=== PATIENT | female | born 1950 | race Caucasian/White ===

== ENCOUNTER → 2018-10-07 | Outpatient (CLI) | payer MEDICARE, BC, OTHER ==
[~2018-10-07] MED LIST: CIPR500 PO; ESCI20 PO; ESTNORT PO; LEVSOD100 PO; METR500 PO; PROG100 PO; STOMUL PO
== END | disposition home or self-care (01) ==
LOC: PLD 12:32 → LAB SHORT 12:32
DX: N85.00 Endometrial hyperplasia, unspecified (principal); N95.0 Postmenopausal bleeding
CPT/HCPCS: 88305

== ENCOUNTER 2018-11-03 09:15 | Day surgery (SDC) | payer MEDICARE, BC, OTHER ==
[~2018-11-03] VITALS: Ht 157.5 cm; Wt 82.8 kg
[~2018-11-03 09:15] MED LIST changes: +OLMESARTAN-HCT1 EACH PO
--- NOTE | 2018-11-03 10:07 | NUR ---
History, Chart, Medications and Allergies reviewed before start of procedure. Lungs clear T/O to Auscultation.
--- NOTE | 2018-11-03 15:07 | NUR ---
PT TO UNIT PT ARRIVED TO UNIT AT 1335 FROM OR VIA OR BED. SLIDE TO HOSPITAL BED. LITTLE IN PLACE PATENT AND DRAINING. PT ORIENTED TO UNIT. STERI STRIPS IN PLACE ON 3 ABDOMINAL SURGICAL SITES.
--- NOTE | 2018-11-03 17:48 | NUR ---
SHIFT SUMMARY POD0 PT FROM OR POST [facility]. ALERT AND ORIENTED. 3 ABDOMINAL SITES, STERISTRIPS IN PLACE, DRY AND NO DISCHARGE. PAD IN PLACE, SCANT DISCHARGE. MEDICATED FOR PAIN X1 WITH NORCO. PT MILD NAUSEA AFTER NORCO MEDICATED X1 WITH REGLAN. REGULAR DIET FOR PATIENT. LR RUNNING AT 125ML/HR. PT HAD FIRST INSULIN DOSAGE AT DINNER FOR NEW DIABETES.
[2018-11-04 04:40] LABS: BASOPHILS ABSOLUTE AUTO 0.01 K/mm3 (0.00-0.23); BASOPHILS PERCENT AUTO 0 % (0-2); EOSINOPHILS PERCENT AUTO 0 % (0-6); Hematocrit 33.2 % (33.0-51.0); Hemoglobin 10.8 g/dL (11.5-16.0); IMMATURE GRAN ABSOLUTE AUTO 0.09 K/mm3 (0.00-0.10); IMMATURE GRAN PERCENT AUTO 1 % (0-1); LYMPHOCYTES ABSOLUTE AUTO 1.41 K/mm3 (0.84-5.20); LYMPHOCYTES PERCENT AUTO 11 % (21-46); MONOCYTES PERCENT AUTO 4 % (4-13); Mean Corpuscular HGB 27.9 pg (26.0-34.0); Mean Corpuscular HGB Conc 32.5 g/dL (31.5-36.5); Mean Corpuscular Volume 86 fL (80-100); NEUTROPHILS ABSOLUTE AUTO 11.32 K/mm3 (1.96-9.15); NEUTROPHILS PERCENT AUTO 85 % (41-73); Platelet Count 242 K/mm3 (150-400); RDW Coefficient Variation 13.2 % (11.7-14.2); RDW Standard Deviation 41.1 fL (35.1-46.3); Red Blood Cell Count 3.87 M/mm3 (3.80-5.20); White Blood Cell Count 13.33 K/mm3 (4.00-11.30)
--- NOTE | 2018-11-04 07:49 | NUR ---
SUMMARY: POD [address] MICHELLE GREGORY. VSS, AFEBRILE, TOLERATING REGULAR INTAKE. PT PASSING MIN GAS BUT AMBULATES HALLS X2 THIS SHIFT. PAIN WELL CONTROLLED WITH TORDAL AND TYLENOL. LITTLE DC'D THIS MORNING AND AWAIT PT VOID. ANTICIPATE DC HOME LATER THIS DAY.
[2018-11-04] MEDS ORDERED: ACET325 PO (12:46)
[2018-11-04] MEDS ORDERED: DOCU100 PO (12:47)
[2018-11-04] MEDS ORDERED: IBUP600 PO (12:47)
--- NOTE | 2018-11-04 13:29 | NUR ---
DISCHARGE NOTE PT DISCHARGED TO HOME WITH . LEFT UNIT VIA WHEELCHAIR AT 1330. IV REMOVED, VERBAL AND WRITTEN DISCHARGE INFORMATION GONE OVER WITH PATIENT.
== END 2018-11-04 13:30 | disposition home or self-care (01) ==
LOC: ORSCMMR 09:15 → ORD 10:30 → ORSCMMR 10:30 → SURS 13:41 → ORSCMMR 11-04 13:30
PROVIDERS: Obstetrics & Gynecology
PROC: 0UT2FZZ Resection of Bilateral Ovaries, Via Natural or Artificial Opening With Percutaneous Endoscopic Assistance (ICD-10-PCS; principal; 2018-11-03 10:30)
PROC: 0UT7FZZ Resection of Bilateral Fallopian Tubes, Via Natural or Artificial Opening With Percutaneous Endoscopic Assistance (ICD-10-PCS; principal; 2018-11-03 10:30)
PROC: 0UT9FZZ Resection of Uterus, Via Natural or Artificial Opening With Percutaneous Endoscopic Assistance (ICD-10-PCS; principal; 2018-11-03 10:30)
DX: C54.1 Malignant neoplasm of endometrium (principal); N95.0 Postmenopausal bleeding; D25.9 Leiomyoma of uterus, unspecified; I10 Essential (primary) hypertension; E03.9 Hypothyroidism, unspecified; F32.9 Major depressive disorder, single episode, unspecified; Z79.899 Other long term (current) drug therapy
CPT/HCPCS: 36415; 82947; 85025; 88108; 88307; A9270-GY; C1729; J0690; J1885; J2250; J2704; J2765; J3010; J7030; J7120

== ENCOUNTER 2019-06-14 04:03 | Emergency (ER) | payer MEDICARE, BC, OTHER ==
[~2019-06-14] VITALS: Ht 157.5 cm; Wt 83.9 kg
[~2019-06-14 04:03] MED LIST changes: +ACET325 PO; +DOCU100 PO; +IBUP600 PO
[2019-06-14 04:41] LABS: BASOPHILS ABSOLUTE AUTO 0.05 K/mm3 (0.00-0.23); BASOPHILS PERCENT AUTO 0 % (0-2); EOSINOPHILS ABSOLUTE AUTO 0.21 K/mm3 (0.00-0.68); EOSINOPHILS PERCENT AUTO 1 % (0-6); Hematocrit 41.6 % (33.0-51.0); Hemoglobin 13.6 g/dL (11.5-16.0); IMMATURE GRAN ABSOLUTE AUTO 0.14 K/mm3 (0.00-0.10); IMMATURE GRAN PERCENT AUTO 1 % (0-1); LYMPHOCYTES ABSOLUTE AUTO 1.74 K/mm3 (0.84-5.20); LYMPHOCYTES PERCENT AUTO 8 % (21-46); MONOCYTES ABSOLUTE AUTO 0.91 K/mm3 (0.16-1.47); MONOCYTES PERCENT AUTO 4 % (4-13); Mean Corpuscular HGB 28.9 pg (26.0-34.0); Mean Corpuscular HGB Conc 32.7 g/dL (31.5-36.5); Mean Corpuscular Volume 89 fL (80-100); Mean Platelet Volume 8.6 fL (9.1-12.4); NEUTROPHILS ABSOLUTE AUTO 18.93 K/mm3 (1.96-9.15); NEUTROPHILS PERCENT AUTO 86 % (41-73); Platelet Count 298 K/mm3 (150-400); RDW Coefficient Variation 12.3 % (11.7-14.2); White Blood Cell Count 21.98 K/mm3 (4.00-11.30)
[2019-06-14 05:01] LABS: Alanine Aminotransfer (ALT/SGP 30 U/L (12-78); Albumin, Blood 3.7 g/dL (3.4-5.0); Albumin/Globulin Ratio 0.9 (0.8-1.8); Alk Phos 135 U/L (50-136); Anion Gap 9 mmol/L (6-16); Aspartate Aminotrans (AST/SGOT 25 U/L (12-37); Bilirubin, Total 0.5 mg/dL (0.1-1.0); Blood Urea Nitrogen 27 mg/dL (8-24); Bun/Creatinine Ratio 28.1 (12.0-20.0); CO2, Blood 26 mmol/L (21-32); Calcium, Blood 9.6 mg/dL (8.5-10.1); Chloride, Blood 105 mmol/L (98-108); Creatinine, Blood 0.96 mg/dL (0.40-1.00); Globulin, Blood 4.1 g/dL (2.2-4.0); Glomerular Filtration Rate >60 (60-); Glucose, Blood 214 mg/dL (70-99); Potassium, Blood 3.6 mmol/L (3.5-5.5); Sodium, Blood 140 mmol/L (136-145); Total Protein, Blood 7.8 g/dL (6.4-8.2); Troponin I <0.015 ng/mL (0.000-0.040)
[2019-06-14 05:44] LABS: Source, Urine Clean Catch
[2019-06-14 05:47] LABS: Bilirubin, Urine Neg (Neg); Blood, Urine Neg (Neg); Glucose Qualitative, Urine Neg (Neg); Ketones, Urine 1+ (Neg); Leukocyte Esterase, Urine 1+ (Neg); Nitrite, Urine Neg (Neg); Protein, Urine 1+ (Neg); Specific Gravity, Urine 1.015 (1.003-1.022); Urobilinogen, Urine NORM (Normal)
[2019-06-14 05:53] LABS: Appearance, Urine Clear (Clear); Color, Urine Yellow (P-Yellow)
[2019-06-14 05:54] LABS: Squamous Epithelial Cells Few /hpf (Few)
[2019-06-14 05:55] LABS: Bacteria Few /hpf
== END 2019-06-14 06:40 | disposition home or self-care (01) ==
LOC: ER 04:03
PROVIDERS: Emergency Medicine
DX: R55 Syncope and collapse (principal); S00.83XA Contusion of other part of head, initial encounter; S20.211A Contusion of right front wall of thorax, initial encounter; E86.0 Dehydration; R11.2 Nausea with vomiting, unspecified; R19.7 Diarrhea, unspecified; I10 Essential (primary) hypertension; E03.9 Hypothyroidism, unspecified; F32.9 Major depressive disorder, single episode, unspecified; Z88.0 Allergy status to penicillin; Z79.899 Other long term (current) drug therapy; W22.8XXA Striking against or struck by other objects, initial encounter; Y92.002 Bathroom of unspecified non-institutional (private) residence as the place of occurrence of the external cause
CPT/HCPCS: 36415; 70450; 71046; 80053; 81001; 84484; 85025; 87086; 87147; 93005; 93010; 96361; 96374; 99285-25; J2405; J7030

== ENCOUNTER → 2020-04-30 | Outpatient (CLI) | payer MEDICARE, BC, OTHER | END | disposition home or self-care (01) | LOC: LAB SHORT 10:32 → LAB EV 10:32 | DX: N39.0 Urinary tract infection, site not specified (principal) | CPT/HCPCS: 87077; 87086; 87186 ==

== ENCOUNTER 2022-01-06 11:24 | Inpatient (IN) | payer MEDICARE, BC, OTHER ==
[~2022-01-06] VITALS: Ht 154.9 cm; Wt 77.1 kg
[2022-01-06 13:05] LABS: Source, Urine Clean Catch
[2022-01-06 13:10] LABS: Appearance, Urine Hazy (Clear); Blood, Urine 1+ (Neg); Color, Urine Amber (P-Yellow); Glucose Qualitative, Urine Neg (Neg); Ketones, Urine 2+ (Neg); Leukocyte Esterase, Urine 1+ (Neg); Nitrite, Urine Neg (Neg); Protein, Urine 2+ (Neg); Urobilinogen, Urine 2+ (Normal)
[2022-01-06 13:13] LABS: Bilirubin, Urine 2+ (Neg)
[2022-01-06 13:17] LABS: Bacteria Many /hpf; Red Blood Cells, Urine 0-2 /hpf (0-2); Squamous Epithelial Cells Few /hpf (Few); White Blood Cells, Urine 0-2 /hpf (0-5)
[2022-01-06 14:35] LABS: BASOPHILS ABSOLUTE AUTO 0.06 K/mm3 (0.00-0.23); BASOPHILS PERCENT AUTO 0 % (0-2); LYMPHOCYTES ABSOLUTE AUTO 1.09 K/mm3 (0.84-5.20); LYMPHOCYTES PERCENT AUTO 6 % (21-46); MONOCYTES PERCENT AUTO 6 % (4-13); Mean Corpuscular HGB 27.6 pg (26.0-34.0); Mean Corpuscular HGB Conc 32.4 g/dL (31.5-36.5); Mean Corpuscular Volume 85 fL (80-100); Mean Platelet Volume 8.7 fL (9.1-12.4); Platelet Count 387 K/mm3 (150-400); RDW Coefficient Variation 14.7 % (11.7-14.2); Red Blood Cell Count 3.99 M/mm3 (3.80-5.20); White Blood Cell Count 18.28 K/mm3 (4.00-11.30)
[2022-01-06 14:39] LABS: EOSINOPHILS ABSOLUTE AUTO 0.02 K/mm3 (0.00-0.68); EOSINOPHILS PERCENT AUTO 0 % (0-6); IMMATURE GRAN ABSOLUTE AUTO 0.15 K/mm3 (0.00-0.10); IMMATURE GRAN PERCENT AUTO 1 % (0-1); NEUTROPHILS ABSOLUTE AUTO 15.86 K/mm3 (1.96-9.15); NEUTROPHILS PERCENT AUTO 87 % (41-73)
[2022-01-06 14:48] LABS: Albumin, Blood 2.4 g/dL (3.4-5.0); Albumin/Globulin Ratio 0.5 (0.8-1.8); Bilirubin, Total 0.7 mg/dL (0.1-1.0); Bun/Creatinine Ratio 20.5 (12.0-20.0); Calcium, Blood 10.1 mg/dL (8.5-10.1); Creatinine, Blood 1.27 mg/dL (0.40-1.00); Globulin, Blood 4.8 g/dL (2.2-4.0); Magnesium, Blood 2.1 mg/dL (1.6-2.4); Potassium, Blood 4.4 mmol/L (3.5-5.5); Total Protein, Blood 7.2 g/dL (6.4-8.2)
[2022-01-06] MEDS ORDERED: HYDROCODONE-AC1 EA18 PO (15:47)
[2022-01-06] MEDS ORDERED: CIPR250 (15:48)
[2022-01-06] MEDS ORDERED: CLIN150 PO (15:49)
[2022-01-06] MEDS ORDERED: Benicar Hct 201 EACH PO (19:21)
--- NOTE | 2022-01-06 19:41 | NUR ---
PT ARRIVES TO SURGICAL FLOOR AT 1920 HRS. PT IS A&OX4, AMBULATES FREELY TO BED FROM TRANSPORT STRETCHER AND IS ABLE TO ANSWER ADMISSION QUESTIONS. CHANGED INTO HOSPITAL GOWN. COMPLIANT WITH ASSESSMENT. BED LOW AND LOCKED, CALL LIGHT WITHIN REACH.
[2022-01-07 04:29] LABS: BASOPHILS ABSOLUTE AUTO 0.03 K/mm3 (0.00-0.23); BASOPHILS PERCENT AUTO 0 % (0-2); EOSINOPHILS ABSOLUTE AUTO 0.03 K/mm3 (0.00-0.68); EOSINOPHILS PERCENT AUTO 0 % (0-6); Hematocrit 28.1 % (33.0-51.0); Hemoglobin 9.2 g/dL (11.5-16.0); IMMATURE GRAN ABSOLUTE AUTO 0.13 K/mm3 (0.00-0.10); IMMATURE GRAN PERCENT AUTO 1 % (0-1); LYMPHOCYTES ABSOLUTE AUTO 0.77 K/mm3 (0.84-5.20); LYMPHOCYTES PERCENT AUTO 5 % (21-46); MONOCYTES ABSOLUTE AUTO 0.95 K/mm3 (0.16-1.47); MONOCYTES PERCENT AUTO 6 % (4-13); Mean Corpuscular HGB 27.6 pg (26.0-34.0); Mean Corpuscular HGB Conc 32.7 g/dL (31.5-36.5); Mean Corpuscular Volume 84 fL (80-100); Mean Platelet Volume 8.2 fL (9.1-12.4); NEUTROPHILS PERCENT AUTO 88 % (41-73); Platelet Count 333 K/mm3 (150-400); RDW Coefficient Variation 14.8 % (11.7-14.2); RDW Standard Deviation 45.8 fL (35.1-46.3); Red Blood Cell Count 3.33 M/mm3 (3.80-5.20); White Blood Cell Count 15.41 K/mm3 (4.00-11.30)
[2022-01-07 04:47] LABS: Albumin, Blood 1.8 g/dL (3.4-5.0); Albumin/Globulin Ratio 0.4 (0.8-1.8); Bilirubin, Total 0.6 mg/dL (0.1-1.0); Globulin, Blood 4.1 g/dL (2.2-4.0); Magnesium, Blood 1.8 mg/dL (1.6-2.4); Potassium, Blood 4.7 mmol/L (3.5-5.5); Total Protein, Blood 5.9 g/dL (6.4-8.2)
--- NOTE | 2022-01-07 05:45 | NUR ---
PT ARRIVES TO FLOOR FROM ED AT 1930 HRS. PT IS A&OX4, SBA W/FWW TO BR AND IS ABLE TO MAKE NEEDS KNOWN. HAS BEEN NPO SINCE MIDNIGHT FOR POSSIBLE SURGIAL INTERVENTION AND DRAIN PLACED TODAY. PAIN IS CONTROLLED WITH PRN FENTANYL. RECEIVING IV FLUIDS AND ABX. VSS. CALLS APPROPRIATELY
[2022-01-07 09:29] LABS: Influenza A, PCR NEGATIVE (NEGATIVE); Influenza B, PCR NEGATIVE (NEGATIVE); Resp Syncytial Virus, PCR NEGATIVE (NEGATIVE); SARS-Cov-2 (COVID-19) PCR, MMC NEGATIVE (NEGATIVE)
--- NOTE | 2022-01-07 11:49 | NUR ---
PT TO DAY SURGERY.
--- NOTE | 2022-01-07 12:25 | NUR ---
01/07/22 1225 Rebeca Vail PATIENT ON SCHEDULED ANTIBIOTICS. NO INTRAOPERATIVE ANTIBIOTICS ORDERED PER SURGEON.
--- NOTE | 2022-01-07 16:45 | NUR ---
S/P I&D OR LLQ W/ DRAIN PLACEMENT EARLIER THIS AFTERNOON, PT AWAKE UPON ARRIVAL, DENIED ANY PAIN, LLQ W/ 4X4 GAUZE DRESSING SATURATED W/ SEROUSANGUINOUS DRAINAGE, DRESSING CHANGED, TERRIE DRAIN NOTED INTACT, SECURED WITH SUTURES, CONT. TO MONITOR VS AND ANY CHANGES.
--- NOTE | 2022-01-07 19:17 | NUR ---
VSS, PT INCONTINENT OF STOOL X2 TODAY, HAD LOOSE BROWN BM, ONCE PRE-OP AND 1 POST OP, MEDICATED WITH FENTANYL 25MCG IV X1 POST OP WITH GOOD RELIEF, LLQ DSG C/D/I, CHANGED X3, CONT. TO DRAIN SEROUSANG. DRAINAGE, TOLERATING FULL LIQUIDS WELL, NO ACUTE CHANGES THIS SHIFT.
[2022-01-08 05:11] LABS: BASOPHILS ABSOLUTE AUTO 0.04 K/mm3 (0.00-0.23); BASOPHILS PERCENT AUTO 0 % (0-2); EOSINOPHILS ABSOLUTE AUTO 0.11 K/mm3 (0.00-0.68); EOSINOPHILS PERCENT AUTO 1 % (0-6); Hematocrit 27.8 % (33.0-51.0); IMMATURE GRAN ABSOLUTE AUTO 0.18 K/mm3 (0.00-0.10); IMMATURE GRAN PERCENT AUTO 2 % (0-1); LYMPHOCYTES ABSOLUTE AUTO 1.07 K/mm3 (0.84-5.20); LYMPHOCYTES PERCENT AUTO 9 % (21-46); MONOCYTES ABSOLUTE AUTO 0.71 K/mm3 (0.16-1.47); MONOCYTES PERCENT AUTO 6 % (4-13); Mean Corpuscular HGB 27.4 pg (26.0-34.0); Mean Corpuscular HGB Conc 32.4 g/dL (31.5-36.5); Mean Corpuscular Volume 85 fL (80-100); Mean Platelet Volume 8.3 fL (9.1-12.4); NEUTROPHILS ABSOLUTE AUTO 10.03 K/mm3 (1.96-9.15); NEUTROPHILS PERCENT AUTO 83 % (41-73); Platelet Count 346 K/mm3 (150-400); RDW Coefficient Variation 15.1 % (11.7-14.2); Red Blood Cell Count 3.29 M/mm3 (3.80-5.20); White Blood Cell Count 12.14 K/mm3 (4.00-11.30)
[2022-01-08 05:30] LABS: Albumin, Blood 1.6 g/dL (3.4-5.0); Anion Gap 7 mmol/L (6-16); Blood Urea Nitrogen 15 mg/dL (8-24); CO2, Blood 25 mmol/L (21-32); Chloride, Blood 106 mmol/L (98-108); Creatinine, Blood 0.79 mg/dL (0.40-1.00); Glomerular Filtration Rate 80 (60-); Glucose, Blood 130 mg/dL (70-99); Phosphorus, Blood 2.7 mg/dL (2.5-4.9); Sodium, Blood 138 mmol/L (136-145)
--- NOTE | 2022-01-08 06:04 | NUR ---
ASSUMED CARE OF PT AT 1900. PT IS POST OP DAY 1 FOR DRAIN PLACEMENT IN LLQ OF ABD. DRESSING HAS BEEN CHANGED TWICE THIS SHIFT D/T SATURATION OF SEROSANG FLUID. PT IS A&OX4, SBA TO BR AND IS ABLE TO MAKE NEEDS KNOWN. SLEEPS 7+ HOURS THIS SHIFT. RECEIVING IV ABX. VSS. WILL CONTINUE TO MONITOR AND GIVE HANDOFF REPORT TO ONCOMING NURSE.
--- NOTE | 2022-01-08 09:42 | NUR ---
DRESSING CHANGED THIS AM, PREVIOUS SATURATED WITH SS/PURULENT APPEARING DRAINAGE. ABD W/MEDIPORE TAPE APPLIED.
--- NOTE | 2022-01-08 15:34 | NUR ---
DRESSING CHANGED AT THIS TIME. LARGE AMT PURULENT DRAINAGE SATURATING DRESSING.
--- NOTE | 2022-01-08 17:18 | NUR ---
SHIFT SUMMARY PT HAS DONE WELL T/O SHIFT. ADVANCED TO REGULAR DIET WITH NO N/V OR INCREASED ABD PAIN. TERRIE TO LLQ CHANGED TWICE, EACH TIME SATURATED WITH PURULENT DRAINAGE. SALINE LOCKED. IV ABX PER EMAR. INDEPENDENT IN ROOM.
--- NOTE | 2022-01-09 04:48 | NUR ---
POD 2 S/P ABD ABCESS I&D. PT VSS T/O NIGHT. DRESSING CHANGED X1 R/T BROWN PURULANT DRNG; TERRIE DRAIN AND SUTURES INTACT. PT REP PAIN BOBBI AT REST, INCREASES W/MVMT, MGD PER EMAR W/REP RELIEF. PT BOBBI REG PO, DENIED N/V OR INC ABD PAIN W/PO INTAKE. PT REP +FLATUS, NO BM THIS SHIFT, IS VOIDING URINE W/O DIFFICULTY. PT AMB INDEP IN ROOM, SBS PRN. ABX CONT PER ORDERS.
[2022-01-09] MEDS ORDERED: PROBIOTIC1 EA13 PO (13:24)
[2022-01-09] MEDS ORDERED: CIPR500 PO (13:25)
[2022-01-09] MEDS ORDERED: METR500 PO (13:26)
[2022-01-09] MEDS ORDERED: Percocet 5-3251 EACH PO (13:26)
--- NOTE | 2022-01-09 14:36 | NUR ---
DISCHARGE PT VERY EXCITED FOR DC HOME. WOUND CARE WENT OVER IN DETAIL. WOUND CARE PREFORMED PRIOR TO DC. PERCOCET RX SENT w/ PT & OTHER MEDS FAXED TO [facility]. ESCORTED OUT VIA W/C.
== END 2022-01-09 14:30 | disposition home or self-care (01) | DRG 854 ==
LOC: ER 11:24 → SURS 19:13 → ER 19:13 → SURS 20:21
PROVIDERS: Nurse Practitioner Acute Care; Physician Assistant; ADMIT Internal Medicine
PROC: 3E03329 Introduction of Other Anti-infective into Peripheral Vein, Percutaneous Approach (ICD-10-PCS; principal; 2022-01-06)
PROC: 0W9F0ZZ Drainage of Abdominal Wall, Open Approach (ICD-10-PCS; 2022-01-07)
DX: A41.81 Sepsis due to Enterococcus (principal); K57.20 Diverticulitis of large intestine with perforation and abscess without bleeding; K63.2 Fistula of intestine; N17.9 Acute kidney failure, unspecified; L02.211 Cutaneous abscess of abdominal wall; A41.51 Sepsis due to Escherichia coli [E. coli]; Z20.822 Contact with and (suspected) exposure to COVID-19; R65.20 Severe sepsis without septic shock; I10 Essential (primary) hypertension; F32.A Depression, unspecified; E03.9 Hypothyroidism, unspecified; E86.0 Dehydration; Z98.51 Tubal ligation status; Z90.49 Acquired absence of other specified parts of digestive tract; Z90.710 Acquired absence of both cervix and uterus; Z98.890 Other specified postprocedural states; Z88.0 Allergy status to penicillin; Z79.899 Other long term (current) drug therapy
CPT/HCPCS: 0241U; 36415; 74177; 80053; 80069; 81001; 83605; 83690; 83735; 85025; 87070; 87075; 87077; 87086; 87186; 87205; 96365; 96368; 99285-25; A9270; J0692; J0744; J1956; J2250; J2704; J2795; J3010; J7030; J7120; Q9967

== ENCOUNTER 2022-02-06 16:13 | Inpatient (IN) | payer MEDICARE, BC, OTHER ==
[~2022-02-06] VITALS: Ht 154.9 cm; Wt 77.2 kg
[~2022-02-06 16:13] MED LIST changes: +Benicar Hct 201 EACH PO; +CIPR250; +CLIN150 PO; +HYDROCODONE-AC1 EA18 PO; +PROBIOTIC1 EA13 PO; +Percocet 5-3251 EACH PO
[2022-02-06 17:07] LABS: BASOPHILS ABSOLUTE AUTO 0.03 K/mm3 (0.00-0.23); BASOPHILS PERCENT AUTO 0 % (0-2); EOSINOPHILS ABSOLUTE AUTO 0.28 K/mm3 (0.00-0.68); EOSINOPHILS PERCENT AUTO 3 % (0-6); Hematocrit 40.1 % (33.0-51.0); IMMATURE GRAN ABSOLUTE AUTO 0.02 K/mm3 (0.00-0.10); IMMATURE GRAN PERCENT AUTO 0 % (0-1); LYMPHOCYTES ABSOLUTE AUTO 2.04 K/mm3 (0.84-5.20); LYMPHOCYTES PERCENT AUTO 24 % (21-46); MONOCYTES ABSOLUTE AUTO 0.59 K/mm3 (0.16-1.47); MONOCYTES PERCENT AUTO 7 % (4-13); Mean Corpuscular HGB 28.6 pg (26.0-34.0); Mean Corpuscular HGB Conc 32.4 g/dL (31.5-36.5); Mean Corpuscular Volume 88 fL (80-100); Mean Platelet Volume 8.7 fL (9.1-12.4); NEUTROPHILS ABSOLUTE AUTO 5.72 K/mm3 (1.96-9.15); NEUTROPHILS PERCENT AUTO 66 % (41-73); Platelet Count 284 K/mm3 (150-400); RDW Coefficient Variation 15.9 % (11.7-14.2); RDW Standard Deviation 51.7 fL (35.1-46.3); Red Blood Cell Count 4.55 M/mm3 (3.80-5.20); White Blood Cell Count 8.68 K/mm3 (4.00-11.30)
[2022-02-06] MEDS ORDERED: EUTHYROX100 MC1 PO (17:15)
[2022-02-06 17:29] LABS: Albumin, Blood 3.3 g/dL (3.4-5.0); Albumin/Globulin Ratio 0.8 (0.8-1.8); Bilirubin, Total 0.3 mg/dL (0.1-1.0); Bun/Creatinine Ratio 13.3 (12.0-20.0); Calcium, Blood 9.5 mg/dL (8.5-10.1); Creatinine, Blood 0.75 mg/dL (0.40-1.00); Globulin, Blood 3.9 g/dL (2.2-4.0); Potassium, Blood 3.9 mmol/L (3.5-5.5); Total Protein, Blood 7.2 g/dL (6.4-8.2)
[2022-02-06] MEDS ORDERED: BENICAR HCT 201 EACH PO (20:52)
[2022-02-07 00:24] LABS: CHOL/HDL RATIO 3.7; Cholesterol 169 mg/dL (50-200); HDL Cholesterol 46 mg/dL (>39); LDL/HDL RATIO 1.7; Low Density Lipoprotein Chol 78 mg/dL (0-110); Thyroid Stimulating Hormone 0.827 uIU/mL (0.360-4.800); Triglycerides 227 mg/dL (30-160); Very Low Density Lipoprot Chol 45 mg/dL (6-32)
[2022-02-08] MEDS ORDERED: ASPI81CH PO (14:18)
[2022-02-08] MEDS ORDERED: ATOR40TA PO (14:19)
[2022-02-08] MEDS ORDERED: CLOP75 PO (14:20)
== END 2022-02-08 15:23 | disposition home or self-care (01) | DRG 65 ==
LOC: ER 16:13 → MEDS 16:14
PROVIDERS: Student in an Organized Health Care Education/Training Program; ADMIT Internal Medicine
DX: I63.9 Cerebral infarction, unspecified (principal); L02.211 Cutaneous abscess of abdominal wall; F32.A Depression, unspecified; E03.9 Hypothyroidism, unspecified; E66.9 Obesity, unspecified; E04.1 Nontoxic single thyroid nodule; Z88.0 Allergy status to penicillin; I10 Essential (primary) hypertension; Z98.51 Tubal ligation status; Z90.710 Acquired absence of both cervix and uterus; Z90.49 Acquired absence of other specified parts of digestive tract; Z98.890 Other specified postprocedural states; R29.810 Facial weakness; Z79.899 Other long term (current) drug therapy; Z68.32 Body mass index [BMI] 32.0-32.9, adult; R29.702 NIHSS score 2
CPT/HCPCS: 36415; 70450; 70496; 70498; 70551; 74177; 80053; 80061; 82947; 83036; 84443; 85025; 92610; 93005; 93010; 93306; 96360; 96361; 96372; 97161; 99285-25; A9270; G0378; J1650; J7030; Q9967

== ENCOUNTER 2022-04-25 15:25 | Emergency (ER) | payer MEDICARE, BC, OTHER ==
[~2022-04-25] VITALS: Ht 157.5 cm; Wt 79.4 kg
[~2022-04-25 15:25] MED LIST changes: +ASPI81CH PO; +ATOR40TA PO; +BENICAR HCT 201 EACH PO; +CLOP75 PO; +EUTHYROX100 MC1 PO
[2022-04-25 16:10] LABS: BASOPHILS ABSOLUTE AUTO 0.04 K/mm3 (0.00-0.23); BASOPHILS PERCENT AUTO 1 % (0-2); EOSINOPHILS ABSOLUTE AUTO 0.27 K/mm3 (0.00-0.68); EOSINOPHILS PERCENT AUTO 3 % (0-6); Hematocrit 36.7 % (33.0-51.0); Hemoglobin 12.5 g/dL (11.5-16.0); IMMATURE GRAN ABSOLUTE AUTO 0.02 K/mm3 (0.00-0.10); IMMATURE GRAN PERCENT AUTO 0 % (0-1); LYMPHOCYTES ABSOLUTE AUTO 1.93 K/mm3 (0.84-5.20); LYMPHOCYTES PERCENT AUTO 23 % (21-46); MONOCYTES ABSOLUTE AUTO 0.39 K/mm3 (0.16-1.47); MONOCYTES PERCENT AUTO 5 % (4-13); Mean Corpuscular HGB 28.9 pg (26.0-34.0); Mean Corpuscular HGB Conc 34.1 g/dL (31.5-36.5); Mean Corpuscular Volume 85 fL (80-100); Mean Platelet Volume 8.7 fL (9.1-12.4); NEUTROPHILS ABSOLUTE AUTO 5.67 K/mm3 (1.96-9.15); NEUTROPHILS PERCENT AUTO 68 % (41-73); Platelet Count 255 K/mm3 (150-400); RDW Coefficient Variation 13.1 % (11.7-14.2); RDW Standard Deviation 40.4 fL (35.1-46.3); Red Blood Cell Count 4.33 M/mm3 (3.80-5.20); White Blood Cell Count 8.32 K/mm3 (4.00-11.30)
[2022-04-25 16:23] LABS: Albumin, Blood 3.3 g/dL (3.4-5.0); Albumin/Globulin Ratio 0.9 (0.8-1.8); Bilirubin, Total 0.6 mg/dL (0.1-1.0); Bun/Creatinine Ratio 18.4 (12.0-20.0); Calcium, Blood 9.4 mg/dL (8.5-10.1); Creatinine, Blood 0.87 mg/dL (0.40-1.00); Globulin, Blood 3.6 g/dL (2.2-4.0); Total Protein, Blood 6.9 g/dL (6.4-8.2)
[2022-04-25 17:53] LABS: Source, Urine Clean Catch
[2022-04-25 18:02] LABS: Appearance, Urine Clear (Clear); Bilirubin, Urine Neg (Neg); Blood, Urine Neg (Neg); Color, Urine Yellow (P-Yellow); Glucose Qualitative, Urine Neg (Neg); Ketones, Urine Neg (Neg); Leukocyte Esterase, Urine Neg (Neg); Nitrite, Urine Neg (Neg); Protein, Urine Neg (Neg); Specific Gravity, Urine 1.025 (1.003-1.022); Urobilinogen, Urine NORM (Normal)
== END 2022-04-25 20:32 | disposition home or self-care (01) ==
LOC: ER 15:25
PROVIDERS: Physician Assistant
DX: S31.104A Unspecified open wound of abdominal wall, left lower quadrant without penetration into peritoneal cavity, initial encounter (principal); I10 Essential (primary) hypertension; E03.9 Hypothyroidism, unspecified; X58.XXXA Exposure to other specified factors, initial encounter; Z79.890 Hormone replacement therapy; Z79.82 Long term (current) use of aspirin; Z79.899 Other long term (current) drug therapy; Z88.0 Allergy status to penicillin
CPT/HCPCS: 36415; 74177; 80053; 81003; 85025; 99283-25; Q9967

== ENCOUNTER 2022-05-25 10:08 | Day surgery (SDC) | payer MEDICARE, BC, OTHER ==
[~2022-05-25] VITALS: Ht 154.9 cm; Wt 76.4 kg
--- NOTE | 2022-05-25 11:43 | NUR ---
Ambulatory in Day Surgery. Patient states colon prep results clear. History, Chart, Medications and Allergies reviewed before start of procedure.Lungs clear T/O to Auscultation. Patient confirms NPO status and agrees with scheduled surgery. Pre-Op teaching done. Pt verbalizes understanding. Patient States Post-Procedure ride home has been arranged. PT HAS DRAIN SITE TO LL ABDOMEN WITH SLIGHT BROWNISH DRAINAGE. PT HAS COVERED WITH CLEAN ABD PAD AND TAPE. PT ADMITTED TO DSU AND READY FOR PROCEDURE.
--- NOTE | 2022-05-25 12:08 | NUR ---
05/25/22 1208 Jovanny Chou HISTORY, CHART, MEDICATIONS AND ALLERGIES REVIEWED BEFORE START OF PROCEDURE. PATIENT CONFIRMS NPO STATUS AND AGREES WITH SCHEDULED PROCEDURE. 3-LEAD EKG REVIEWED WITH PHYSICIAN PRIOR TO START OF PROCEDURE. MONITOR INTACT WITH CONTINUOUS PULSE OXIMETRY,CAPNOGRAPHY, 3-LEAD EKG, INTERMITTENT BP. SUPPLEMENTAL O2 TO BE TITRATED THROUGHOUT PROCEDURE TO MAINTAIN O2 SATURATION ABOVE 90%. PATIENT DETERMINED TO BE ASA APPROPRIATE FOR PROPOFOL SEDATION PRIOR TO START OF PROCEDURE BY
--- NOTE | 2022-05-25 13:35 | NUR ---
Patient up to Ambulate independently. Gait steady. Ira Paws warming gown applied. Discharge instructions reviewed with patient. Patient verbalizes understanding. Copy given to patient to take home. Patient States Post-Procedure ride home has been arranged. Discharged via wheelchair to private car for ride home.
== END 2022-05-25 13:37 | disposition home or self-care (01) ==
LOC: ORSCMMR 10:08 → ORD 11:30 → ORSCMMR 13:37
PROVIDERS: Surgery
PROC: 0DBK8ZX Excision of Ascending Colon, Via Natural or Artificial Opening Endoscopic, Diagnostic (ICD-10-PCS; principal; 2022-05-25 11:30)
DX: K63.2 Fistula of intestine (principal); D12.2 Benign neoplasm of ascending colon; F32.A Depression, unspecified; K57.30 Diverticulosis of large intestine without perforation or abscess without bleeding; I10 Essential (primary) hypertension; E03.9 Hypothyroidism, unspecified; Z86.73 Personal history of transient ischemic attack (TIA), and cerebral infarction without residual deficits; E66.9 Obesity, unspecified; Z68.32 Body mass index [BMI] 32.0-32.9, adult; Z79.82 Long term (current) use of aspirin; Z79.899 Other long term (current) drug therapy
CPT/HCPCS: 88305; J2704; J7120

== ENCOUNTER → 2022-10-06 | Outpatient (CLI) | payer MEDICARE, BC, OTHER ==
[2022-10-06 14:07] LABS: BASOPHILS ABSOLUTE AUTO 0.03 K/mm3 (0.00-0.23); BASOPHILS PERCENT AUTO 0 % (0-2); EOSINOPHILS ABSOLUTE AUTO 0.29 K/mm3 (0.00-0.68); EOSINOPHILS PERCENT AUTO 3 % (0-6); Hematocrit 32.6 % (33.0-51.0); Hemoglobin 10.4 g/dL (11.5-16.0); IMMATURE GRAN ABSOLUTE AUTO 0.04 K/mm3 (0.00-0.10); IMMATURE GRAN PERCENT AUTO 0 % (0-1); LYMPHOCYTES ABSOLUTE AUTO 1.81 K/mm3 (0.84-5.20); LYMPHOCYTES PERCENT AUTO 19 % (21-46); MONOCYTES ABSOLUTE AUTO 0.56 K/mm3 (0.16-1.47); MONOCYTES PERCENT AUTO 6 % (4-13); Mean Corpuscular HGB 25.2 pg (26.0-34.0); Mean Corpuscular HGB Conc 31.9 g/dL (31.5-36.5); Mean Corpuscular Volume 79 fL (80-100); Mean Platelet Volume 8.6 fL (9.1-12.4); NEUTROPHILS ABSOLUTE AUTO 6.77 K/mm3 (1.96-9.15); NEUTROPHILS PERCENT AUTO 71 % (41-73); Platelet Count 377 K/mm3 (150-400); RDW Standard Deviation 48.2 fL (35.1-46.3); Red Blood Cell Count 4.13 M/mm3 (3.80-5.20)
== END | disposition home or self-care (01) ==
LOC: LAB 14:03 → LAB SHORT 14:03
PROVIDERS: Physician Assistant Surgical
DX: K92.1 Melena (principal)
CPT/HCPCS: 85025

== ENCOUNTER 2023-05-05 06:03 | Inpatient (IN) | payer MEDICARE, BC, OTHER ==
[~2023-05-05] VITALS: Ht 154.9 cm; Wt 72.6 kg
[2023-05-05 07:09] LABS: BASOPHILS ABSOLUTE AUTO 0.03 K/mm3 (0.00-0.23); BASOPHILS PERCENT AUTO 0 % (0-2); EOSINOPHILS ABSOLUTE AUTO 0.02 K/mm3 (0.00-0.68); EOSINOPHILS PERCENT AUTO 0 % (0-6); Hematocrit 38.9 % (33.0-51.0); Hemoglobin 12.3 g/dL (11.5-16.0); IMMATURE GRAN ABSOLUTE AUTO 0.07 K/mm3 (0.00-0.10); IMMATURE GRAN PERCENT AUTO 0 % (0-1); LYMPHOCYTES ABSOLUTE AUTO 0.83 K/mm3 (0.84-5.20); LYMPHOCYTES PERCENT AUTO 4 % (21-46); MONOCYTES ABSOLUTE AUTO 0.39 K/mm3 (0.16-1.47); MONOCYTES PERCENT AUTO 2 % (4-13); Mean Corpuscular HGB 25.3 pg (26.0-34.0); Mean Corpuscular HGB Conc 31.6 g/dL (31.5-36.5); Mean Corpuscular Volume 80 fL (80-100); Mean Platelet Volume 9.1 fL (9.1-12.4); NEUTROPHILS PERCENT AUTO 93 % (41-73); Platelet Count 352 K/mm3 (150-400); RDW Coefficient Variation 14.5 % (11.7-14.2); RDW Standard Deviation 42.2 fL (35.1-46.3); Red Blood Cell Count 4.86 M/mm3 (3.80-5.20); White Blood Cell Count 19.24 K/mm3 (4.00-11.30)
[2023-05-05 07:25] LABS: Albumin/Globulin Ratio 0.9 (0.8-1.8); Bilirubin, Total 0.8 mg/dL (0.1-1.0); Bun/Creatinine Ratio 23.7 (12.0-20.0); Creatinine, Blood 0.8 mg/dL (0.40-1.00); Globulin, Blood 4.4 g/dL (2.2-4.0); Potassium, Blood 4.2 mmol/L (3.5-5.5); Total Protein, Blood 8.4 g/dL (6.4-8.2)
[2023-05-05 08:23] LABS: Source, Urine Clean Catch
[2023-05-05 08:28] LABS: Appearance, Urine Clear (Clear); Bilirubin, Urine Neg (Neg); Blood, Urine 1+ (Neg); Color, Urine Yellow (P-Yellow); Glucose Qualitative, Urine Neg (Neg); Ketones, Urine 1+ (Neg); Leukocyte Esterase, Urine Neg (Neg); Nitrite, Urine Neg (Neg); Protein, Urine 1+ (Neg); Urobilinogen, Urine NORM (Normal)
[2023-05-05 08:39] LABS: Bacteria Rare /hpf; Red Blood Cells, Urine 0-2 /hpf (0-2); Squamous Epithelial Cells Rare /hpf (Few)
[2023-05-05 08:40] LABS: Mucus Light (0-Heavy); White Blood Cells, Urine 0-2 /hpf (0-5)
[2023-05-05 09:58] VITALS: BP 163/75
[2023-05-05 09:59] VITALS: BP 165/76
--- NOTE | 2023-05-05 10:08 | NUR ---
DR NESS NOTIFIED OF SURGERY CONSULT.
--- NOTE | 2023-05-05 14:15 | NUR ---
INTAKE: PT NPO. DR NESS IN TO SEE PT. OK FOR SIPS AND CHIPS AND PO HOME MEDS. ORDER FOR HOME MEDS FROM HOSPITALIST. HOSPITALIST NOTIFIED OF LACTIC ACID. IV FLUIDS INFUSING. NO OTHER NEW ORDERS.
[2023-05-05 14:44] VITALS: BP 127/66
[2023-05-05 19:26] VITALS: BP 138/75
--- NOTE | 2023-05-05 19:55 | NUR ---
PT HAS BEEN STABLE SINCE ADMISSION. NON SURGICAL. NO PAIN, NAUSEA OR EMESIS. PT HAS HYPO BT'S WITH NO FLATUS. VOIDING WELL. FLUIDS INFUSING. LACTIC ACID ELEVATED, TO REPEAT IN AM. NO FEVERS. PT NPO EXCEPT FOR SIPS AND CHIPS. UA SENT, NO CULTURE INDICATED. PAS TO BLE. PT INDEP IN ROOM. PT HOME MEDS ORDERED THIS AFTERNOON AND GIVEN. PT USES CALL LIGHT APPROPRIATELY NEEDED.
[2023-05-06 03:56] LABS: Hematocrit 30.3 % (33.0-51.0); Hemoglobin 9.3 g/dL (11.5-16.0); Mean Corpuscular HGB Conc 30.7 g/dL (31.5-36.5); Mean Corpuscular Volume 82 fL (80-100); Mean Platelet Volume 8.9 fL (9.1-12.4); Platelet Count 233 K/mm3 (150-400); RDW Coefficient Variation 14.8 % (11.7-14.2); RDW Standard Deviation 44.3 fL (35.1-46.3); Red Blood Cell Count 3.72 M/mm3 (3.80-5.20)
[2023-05-06 03:59] VITALS: BP 102/61
[2023-05-06 04:19] LABS: Bun/Creatinine Ratio 19.4 (12.0-20.0); Calcium, Blood 8.7 mg/dL (8.5-10.1); Creatinine, Blood 0.93 mg/dL (0.40-1.00); Potassium, Blood 4.1 mmol/L (3.5-5.5)
--- NOTE | 2023-05-06 05:26 | NUR ---
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 PT DENIES N/V AND PAIN T/O NIGHT. UP TO BATHROOM INDEPEND SEVERAL TIMES. URINATING WELL, 2X LOOSE BM, PASSING "LITTLE" GAS. BT CONTINUE TO BE HYPOACTIVE. CBG'S Q6 WHILE NPO PLUS SIPS/ ICE CHIPS, NO INSULIN COVERAGE ORDERED. LR IV FLUIDS CONTINUED T/O NIGHT @150/HR TO R AC. LACTIC ACID WNL THIS A.M. FROM PREVIOUS cH 3.8. NO ACUTE CHANGES THIS SHIFT. PT A&OX4, PLEASANT AND COOPERATIVE. CALL LIGHT W/IN REACH.
[2023-05-06 07:11] VITALS: BP 139/82
[2023-05-06 14:54] VITALS: BP 140/77
--- NOTE | 2023-05-06 16:19 | NUR ---
SHIFT SUMMARY PT HAS BEEN PASSING FLATUS T/O THE DAY. SHE HAS DENIED PAIN AND NAUSEA. PT TOLERATED CLEAR LIQUIDS. SHE IS TOLERATING FULL LIQUIDS AT THIS TIME BUT REPORTED SOME INCREASED RLQ DISCOMFORT AFTER ATTEMPTING FULL LIQUIDS. PT IS INDEPENDENT IN HER ROOM. PT RESTING IN BED, CALL LIGHT WITHIN REACH.
[2023-05-06 19:32] VITALS: BP 162/83
[2023-05-07 05:07] VITALS: BP 135/72
--- NOTE | 2023-05-07 06:09 | NUR ---
SHIFT SUMMARY PATIENT ALERT AND ORIENTED x4. VITAL SIGNS STABLE. PATIENT INDEPENDENT IN THE ROOM. AMBULATING INTO BATHROOM, PATIENT DENIED ANY BOWEL MOVEMENTS JUST "SQUIRTS", ABLE TO VOID. PATIENT DECLINED NEED FOR PAIN MANAGEMENT DURING THE NIGHT. REPORTED MILD DISCOMFORT BUT PATIENT REPORTED TOLERABLE. PATIENT ABLE TO SLEEP FOR MAJORITY OF NIGHT WITH NO OTHER COMPLAITNS. NO OTHER CHANGES DURING THE NIGHT. WILL REPORT TO DAY SHIFT RN.
[2023-05-07 07:19] VITALS: BP 132/70
[2023-05-07 10:36] VITALS: BP 133/65
--- NOTE | 2023-05-07 11:00 | NUR ---
DISCHARGE PT PROVIDED WITH WRITTEN AND VERBAL DISCHARGE INSTRUCTIONS, SHE REPORTED UNDERSTANDING. PT EDUCATED TO SLOWLY ADVANCE DIET FROM FULL LIQUID TO SOFT FOODS THEN TO REGULAR TOLERATED. PT EDUCATED TO FOLLOW-UP WITH PCP WITHIN 3 DAYS. PRIOR TO DISCHARGE PT TOLERATED PO, DENIED PAIN AND N/V. VSS PRIOR TO DISCHARGE. PT AMBULATED OUT WITHOUT ASSISTANCE AT APPROXIMATELY 0955.
== END 2023-05-07 10:55 | disposition home or self-care (01) | DRG 389 ==
LOC: ER 06:03 → SURS 08:59
PROVIDERS: Student in an Organized Health Care Education/Training Program; ADMIT Internal Medicine
DX: K56.50 Intestinal adhesions [bands], unspecified as to partial versus complete obstruction (principal); E87.20 Acidosis, unspecified; E86.0 Dehydration; R73.9 Hyperglycemia, unspecified; D72.829 Elevated white blood cell count, unspecified; I10 Essential (primary) hypertension; E03.9 Hypothyroidism, unspecified; F32.A Depression, unspecified; E66.9 Obesity, unspecified; Z68.30 Body mass index [BMI] 30.0-30.9, adult; Z93.2 Ileostomy status; Z90.49 Acquired absence of other specified parts of digestive tract; Z88.0 Allergy status to penicillin; Z79.890 Hormone replacement therapy; Z79.82 Long term (current) use of aspirin; Z79.02 Long term (current) use of antithrombotics/antiplatelets; Z79.899 Other long term (current) drug therapy; E78.00 Pure hypercholesterolemia, unspecified; Z90.89 Acquired absence of other organs; Z98.51 Tubal ligation status; Z90.710 Acquired absence of both cervix and uterus; Z98.890 Other specified postprocedural states; Z86.73 Personal history of transient ischemic attack (TIA), and cerebral infarction without residual deficits
CPT/HCPCS: 36415; 74177; 80048; 80053; 81001; 82947; 83036; 83605; 83690; 85025; 85027; 94760; 94762; 96361; 96374-59; 96375; 99285-25; A9270; J1170; J1650; J1885; J2405; J7030; J7120; Q2036; Q9967

== ENCOUNTER → 2025-01-25 | Outpatient (CLI) | payer MEDICARE, BC, OTHER | END | disposition home or self-care (01) | LOC: LAB SHORT 08:07 → LAB 08:07 | DX: L82.1 Other seborrheic keratosis (principal); D17.1 Benign lipomatous neoplasm of skin and subcutaneous tissue of trunk | CPT/HCPCS: 88305 ==

== ENCOUNTER 2025-02-07 05:33 | Observation (INO) | payer MEDICARE, BC, OTHER ==
[~2025-02-07] VITALS: Ht 154.9 cm; Wt 81.7 kg
[~2025-02-07 05:33] MED LIST changes: +ESCI10 PO; -ESCI20 PO
[2025-02-07 06:08] LABS: BASOPHILS ABSOLUTE AUTO 0.03 K/mm3 (0.00-0.23); BASOPHILS PERCENT AUTO 0 % (0-2); EOSINOPHILS ABSOLUTE AUTO 0.03 K/mm3 (0.00-0.68); EOSINOPHILS PERCENT AUTO 0 % (0-6); Hematocrit 43.9 % (33.0-51.0); Hemoglobin 14.3 g/dL (11.5-16.0); IMMATURE GRAN ABSOLUTE AUTO 0.05 K/mm3 (0.00-0.10); IMMATURE GRAN PERCENT AUTO 0 % (0-1); LYMPHOCYTES ABSOLUTE AUTO 1.17 K/mm3 (0.84-5.20); LYMPHOCYTES PERCENT AUTO 8 % (21-46); MONOCYTES ABSOLUTE AUTO 0.37 K/mm3 (0.16-1.47); MONOCYTES PERCENT AUTO 3 % (4-13); Mean Corpuscular HGB Conc 32.6 g/dL (31.5-36.5); Mean Corpuscular Volume 84 fL (80-100); NEUTROPHILS ABSOLUTE AUTO 12.82 K/mm3 (1.96-9.15); NEUTROPHILS PERCENT AUTO 89 % (41-73); NRBC ABSOLUTE 0.00 K/mm3 (0.00-0.02); NRBC Auto 0.0 /100 WBC (0.0-0.2); Platelet Count 288 K/mm3 (150-400); RDW Coefficient Variation 13.8 % (11.7-14.2); RDW Standard Deviation 42.9 fL (35.1-46.3)
[2025-02-07 06:26] LABS: Alanine Aminotransfer (ALT/SGP 27.0 U/L (12-78); Albumin, Blood 3.6 g/dL (3.4-5.0); Albumin/Globulin Ratio 0.8 (0.8-1.8); Anion Gap 10.0 mmol/L (3-11); Aspartate Aminotrans (AST/SGOT 28.0 U/L (12-37); Bilirubin, Total 0.8 mg/dL (0.1-1.0); Blood Urea Nitrogen 14.0 mg/dL (8-24); CO2, Blood 25.0 mmol/L (21-32); Calcium, Blood 10.2 mg/dL (8.5-10.1); Chloride, Blood 105.0 mmol/L (98-108); Creatinine, Blood 0.83 mg/dL (0.40-1.00); Globulin, Blood 4.4 g/dL (2.2-4.0); Glucose, Blood 228.0 mg/dL (70-99); Potassium, Blood 4.3 mmol/L (3.5-5.5); Sodium, Blood 136.0 mmol/L (136-145); Total Protein, Blood 8.0 g/dL (6.4-8.2)
[2025-02-07 10:12] VITALS: BP 178/89
[2025-02-07] MEDS ORDERED: TOLTERODINE TART4 MG PO (10:22)
[2025-02-07] MEDS ORDERED: LATA.005SO BOTHEYES (10:23)
[2025-02-07] MEDS ORDERED: KOURZEQ5 GM UD (10:24)
[2025-02-07] MEDS ORDERED: Morphine Sulfate 4 MG/1 ML Injection IV PRN (10:35)
[2025-02-07] MEDS ORDERED: FentaNYL Citrate 50 MCG/ML 2 ML Injection IV PRN (10:40)
[2025-02-07] MEDS ORDERED: Ketorolac Tromethamine 15mg Vial IV PRN (10:40)
[2025-02-07 11:25] VITALS: BP 152/76
--- NOTE | 2025-02-07 12:07 | NUR ---
ADMISSION NOTE PATIENT A/OX4, ABLE TO MAKE NEEDS KNOWN. PLEASANT ADN COOPERATIVE WITH CARE. PATIENT NPO FOR SBO. MED REC COMPLETED. PATIENT COMPLAINING OF UPPER ABDOMINAL PAIN 02/21, DR. SANDS NOTIFIED AND NEW ORDERS RECIEVED FOR PAIN MEDICATION. PRN PAIN MEDICATION ADMINISTERED PER SEP. NO OTHER CONCERNS AT THIS TIME, PATIENT ORIENTED TO ROOM, CALL LIGHT WITHIN REACH.
[2025-02-07 14:10] VITALS: BP 148/93
--- NOTE | 2025-02-07 18:43 | NUR ---
SHIFT SUMMARY PATIENT A/OX4, ABLE TO MAKE NEEDS KNOWN. PLEASANT AND COOPERATIVE WITH CARE. INDEPENDENT IN ROOM, IV FLUIDS RUNNING PER SEP. PATIENT MEDICATED WITH MORPHINE AND TORADOL PER SEP. PATIENT REMAINS NPO, BUT HAS HAD 2 BOWEL MOVEMENTS THIS EVENING AND PAIN HAS SUBSIDED. FAMILY AT BEDSIDE THIS EVENING. NO OTHER CONCERNS AT THIS TIME, WILL CONTINUE TO MONITOR.
[2025-02-07 19:03] VITALS: BP 137/84
--- NOTE | 2025-02-08 04:02 | NUR ---
NOC SUMMARY- PT HAS HAD SEVERAL SMALL BM'S AND PASSING GAS. PT HAS HAD NO DISCOMFORT THIS SHIFT. PT DENIES N/V. PT HAS RESTED COMFORTABLY IN NO DISTRESS. CALL LIGHT IN REACH.
[2025-02-08 04:59] VITALS: BP 146/80
[2025-02-08 05:05] LABS: BASOPHILS ABSOLUTE AUTO 0.01 K/mm3 (0.00-0.23); BASOPHILS PERCENT AUTO 0 % (0-2); EOSINOPHILS ABSOLUTE AUTO 0.25 K/mm3 (0.00-0.68); EOSINOPHILS PERCENT AUTO 3 % (0-6); Hematocrit 36.6 % (33.0-51.0); Hemoglobin 11.7 g/dL (11.5-16.0); IMMATURE GRAN ABSOLUTE AUTO 0.03 K/mm3 (0.00-0.10); IMMATURE GRAN PERCENT AUTO 0 % (0-1); LYMPHOCYTES ABSOLUTE AUTO 1.86 K/mm3 (0.84-5.20); LYMPHOCYTES PERCENT AUTO 20 % (21-46); MONOCYTES ABSOLUTE AUTO 0.65 K/mm3 (0.16-1.47); MONOCYTES PERCENT AUTO 7 % (4-13); Mean Corpuscular HGB Conc 32.0 g/dL (31.5-36.5); Mean Corpuscular Volume 86 fL (80-100); NEUTROPHILS ABSOLUTE AUTO 6.73 K/mm3 (1.96-9.15); NEUTROPHILS PERCENT AUTO 71 % (41-73); NRBC ABSOLUTE 0.00 K/mm3 (0.00-0.02); NRBC Auto 0.0 /100 WBC (0.0-0.2); Platelet Count 219 K/mm3 (150-400); RDW Coefficient Variation 14.3 % (11.7-14.2); RDW Standard Deviation 45.3 fL (35.1-46.3)
[2025-02-08 05:26] LABS: Anion Gap 7.0 mmol/L (3-11); Blood Urea Nitrogen 16.0 mg/dL (8-24); CO2, Blood 27.0 mmol/L (21-32); Calcium, Blood 8.5 mg/dL (8.5-10.1); Chloride, Blood 109.0 mmol/L (98-108); Creatinine, Blood 0.93 mg/dL (0.40-1.00); Glucose, Blood 108.0 mg/dL (70-99); Potassium, Blood 4.0 mmol/L (3.5-5.5); Sodium, Blood 139.0 mmol/L (136-145)
[2025-02-08 07:13] VITALS: BP 133/55
[2025-02-08] MEDS ORDERED: TRIA15CR3 TOP (09:08)
[2025-02-08] MEDS ORDERED: OLMESARTAN MEDO20 MG PO (09:09)
--- NOTE | 2025-02-08 14:01 | NUR ---
PT TOLERATING CLEARS. PROVIDED VANILLA PUDDING PER PT REQUEST/ORDERS. PT UP TO RESTROOM AT THIS TIME.
[2025-02-08 15:43] VITALS: BP 158/89
--- NOTE | 2025-02-08 15:53 | NUR ---
discharged PT TOLERATED PUDDING. HAVING LOOSE BMS AND VOIDING, DENIES N/V. DC'D IV, CATHETER INTACT. REVIEWED DC INSTRUCTIONS W/PT; VERBALIZED UNDERSTANDING. PT LEFT UNIT IN WC W/POSSESSIONS AND DC PAPERWORK IN HAND TO MEET RIDE OUTSIDE.
== END 2025-02-08 15:49 | disposition home or self-care (01) ==
LOC: ER 05:33 → SURS 08:44
PROVIDERS: Emergency Medicine; Family Medicine; ADMIT Hospitalist
DX: K56.600 Partial intestinal obstruction, unspecified as to cause (principal); I10 Essential (primary) hypertension; E03.9 Hypothyroidism, unspecified; K57.30 Diverticulosis of large intestine without perforation or abscess without bleeding; Z98.890 Other specified postprocedural states; Z79.82 Long term (current) use of aspirin; Z79.890 Hormone replacement therapy; Z79.899 Other long term (current) drug therapy; Z86.73 Personal history of transient ischemic attack (TIA), and cerebral infarction without residual deficits; Z88.0 Allergy status to penicillin
CPT/HCPCS: 36415; 74177; 80048; 80053; 82947; 83690; 84443; 84484; 85025; 93005; 93010; 96361; 96374; 96375; 99285-25; G0378; J1885; J2270; J7120; Q9967